=== PATIENT | male | born 1985 | race Caucasian/White ===

== ENCOUNTER 2020-09-23 19:18 | Day surgery (SDC) | payer OTHER, SELFPAY ==
[~2020-09-23] VITALS: Ht 185.4 cm; Wt 86.0 kg
[2020-09-23] MEDS ORDERED: ONDANSETRON 2MG/ML, 2ML ONE ×2 (20:14→22:35)
[2020-09-23] MEDS ORDERED: MORPHINE SULFATE 4 MG/ML, 1ML ONE ×2 (20:14→21:12)
[2020-09-23] MEDS: MORPHINE SULFATE 4 MG/ML, 1ML IVPush PRN ×2 (20:24→21:21)
[2020-09-23] MEDS ORDERED: ONDANSETRON 2MG/ML, 2ML IVPush ONE (20:30)
[2020-09-23] MEDS ORDERED: SODIUM CHLORIDE FLUSH 10ML SYR IVF ONE (20:30)
[2020-09-23] MEDS ORDERED: SODIUM CHLORIDE 0.9% 1,000 ML IV ONE (20:30)
--- NOTE | 2020-09-23 20:33 | NUR ---
PT MEDICATED PER JAN. LABS DRAWN AND SENT TO LAB AT THIS TIME. CT NOTIFIED OF NEED FOR PT IMAGING AT THIS TIME.
[2020-09-23 20:35] LABS: MEAN CORPUSCULAR HEMOGLOBIN 29.4 pg (27.5-34.5); MEAN CORPUSCULAR HGB CONC 32.8 g/dL (33.2-36.2); MEAN PLATELET VOLUME 8.3 fL (7.4-10.4); PLATELET COUNT 272 x10^3/uL (130-400); RED BLOOD COUNT 5.08 x10^6/uL (4.38-5.82); RED CELL DISTRIBUTION WIDTH 13.8 % (9.4-14.8)
--- NOTE | 2020-09-23 20:47 | NUR ---
PT TO CT VIA [facility] AT THIS TIME.
[2020-09-23 20:49] LABS: ALANINE AMINOTRANSFERASE 43 U/L (12-78); ALBUMIN 4.1 g/dL (3.4-5.0); ANION GAP 7 mmol/L (5-15); CALCIUM 8.9 mg/dL (8.5-10.1); CHLORIDE 108 mmol/L (98-107); CREATININE 1.01 mg/dL (0.7-1.3)
[2020-09-23 20:52] LABS: ALKALINE PHOSPHATASE 106 U/L (45-117); BILIRUBIN,TOTAL 0.4 mg/dL (0.2-1.0); TOTAL PROTEIN 7.5 g/dL (6.4-8.2)
[2020-09-23] MEDS ORDERED: CEFOTETAN PMX 1GM/50ML 50 ML IV ONE (21:00)
[2020-09-23 21:14] LABS: MD YES
[2020-09-23 21:17] LABS: <PLATELET ESTIMATE> ADEQUATE; <PLT MORPHOLOGY> NORMAL PLT MORPH; <RBC MORPHOLOGY> NORMAL; BAND#(MANUAL) 0.87 x10^3/uL; BANDS%(MANUAL) 5 % (0-7); EOS#(MANUAL) 0.69 x10^3/uL (0.0-0.4); EOS% (MANUAL) 4 % (1-7); LYMPH#(MANUAL) 1.56 x10^3/uL (1-3.4); LYMPHS% (MANUAL) 9 % (22-44); MONOS#(MANUAL) 0.87 x10^3/uL (0.3-2.7); MONOS% (MANUAL) 5 % (2-9); SEG#(MANUAL) 13.32 x10^3/uL (1.8-6.8); SEGS% (MANUAL) 77 % (42-75)
--- NOTE | 2020-09-23 21:18 | NUR ---
REPORT OF PT TO DEANNA IN SURGERY. ALL QUESTIONS ANSWERED. PT ANTIBIOTICS REQUESTED FROM PHARMACY. PT MEDICATED FOR PAIN PRN PER JAN.
--- NOTE | 2020-09-23 21:22 | NUR ---
IV ABX STARTED AT THIS TIME
[2020-09-23] MEDS ORDERED: BUPIVACAINE/PF 0.25% ONE (21:36)
--- NOTE | 2020-09-23 21:47 | NUR ---
PT TO OR AT THIS TIME WITH PROJECT ARCHIVIST. ALL QUESTIONS ANSWERED. PT TRANSPORTED VIA GURNEY AND DENIES ANY OTHER NEEDS PRIOR TO TRANSPORT.
[2020-09-23] MEDS ORDERED: FENTANYL PF 250 MCG/5ML ONE (22:17)
[2020-09-23] MEDS ORDERED: MEPERIDINE/PF 25MG/0.5ML IVPush PRN (22:30)
[2020-09-23] MEDS ORDERED: LABETALOL 5MG/ML, 20ML IV PRN (22:30)
[2020-09-23] MEDS ORDERED: hydrALAzine 20 MG/ML, 1ML IV PRN (22:30)
[2020-09-23] MEDS ORDERED: OXYcodone 5 MG/5 ML ORAL.SOL UDC PO PRN (22:30)
[2020-09-23] MEDS ORDERED: PROMETHAZINE 25 MG/ML, 1ML IVPush PRN (22:30)
[2020-09-23] MEDS ORDERED: FENTANYL PF 100 MCG/2ML IV PRN (22:30)
[2020-09-23] MEDS ORDERED: DIPHENHYDRAMINE 50 MG/ML, 1ML IVPush PRN (22:30)
[2020-09-23] MEDS ORDERED: HYDROmorphone 1 MG/ML, 1ML INJ IVPush PRN (22:30)
[2020-09-23] MEDS ORDERED: HALOPERIDOL 5 MG/ML IV PRN (22:30)
[2020-09-23] MEDS ORDERED: SUGAMMADEX 200 MG/2 ML IVPush ONE (22:34)
[2020-09-23] MEDS ORDERED: BUPIVACAINE/PF 0.25% INFIL ONE (22:34)
[2020-09-23] MEDS ORDERED: CEFAZOLIN 1,000 MG ONE (22:35)
[2020-09-23] MEDS ORDERED: PROPOFOL 10 MG/ML, 20ML ONE (22:35)
[2020-09-23] MEDS ORDERED: ROCURONIUM 10MG/ML,5ML ONE (22:35)
[2020-09-23] MEDS ORDERED: SUCCINYLCHOLINE 20 MG/ML, 10ML ONE (22:35)
[2020-09-23] MEDS ORDERED: KETOROLAC 30 MG/1 ML ONE (22:35)
[2020-09-23] MEDS ORDERED: NEOSTIGMINE 1 MG/ML, 10ML ONE (22:35)
[2020-09-23] MEDS ORDERED: DEXAMETHASONE 4 MG/ML, 1ML ONE (22:35)
[2020-09-23] MEDS ORDERED: GLYCOPYRROLATE 0.2MG/1ML, 5ML ONE (22:35)
[2020-09-23] MEDS ORDERED: OXYcodone 5 MG/5 ML ORAL.SOL UDC ONE (23:02)
[2020-09-23] MEDS ORDERED: OMNIPAQUE 350 MG/ML, 100ML BOTTLE ONE (23:10)
[2020-09-23 23:30] VITALS: BP 134/80
[2020-09-23] MEDS ORDERED: HYDR-3240 PO (23:30)
[2020-09-24] MEDS ORDERED: ONDANSETRON 2MG/ML, 2ML IVPush PRN (02:00)
[2020-09-24] MEDS ORDERED: HYDROcodone/APAP 5/325 TABLET PO PRN (02:00)
[2020-09-24] MEDS ORDERED: LACTATED RINGERS 1,000 ML IV SCH (02:00)
[2020-09-24] MEDS ORDERED: MORPHINE SULFATE 4 MG/ML, 1ML IVPush PRN (02:00)
== END 2020-09-24 02:15 | disposition home or self-care (01) ==
LOC: ED 21:04 → UNDOADMIN 21:27 → EDIP 21:27 → ED 22:39 → 4NE 23:24 → EDIP 23:24 → ED 09-24 02:15 → UNDODISIN 09-24 03:07
PROVIDERS: ATTEND Emergency Medicine
DX: K35.80 Unspecified acute appendicitis (principal); Z20.828 Contact with and (suspected) exposure to other viral communicable diseases; Z79.899 Other long term (current) drug therapy
CPT/HCPCS: 36415; 44970; 74177; 80053; 85025; 87635; 88304; 99285; J0330; J1100; J1885; J2270; J2405; J2704; J3010; J7030; Q9967; G0378; J0690; J2710